=== PATIENT | female | born 1960 | race Caucasian/White ===

== ENCOUNTER 2017-11-12 10:04 | Emergency (ER) | payer OTHER ==
--- NOTE | 2017-11-12 10:28 | EDPHY ---
H & P Stated Complaint: Tripped/fell on 11/02/17;continues w/R lower rib and RUQ pain Source: Patient Exam Limitations: No limitations - Personal History Current Tetanus Diphtheria and Acellular Pertussis (TDAP): Unsure - Medical/Surgical History Hx Asthma: No Hx Chronic Respiratory Disease: No Hx Diabetes: No Hx Cardiac Disease: No Hx Renal Disease: No Hx Cirrhosis: No Hx Alcoholism: No Hx HIV/AIDS: No Hx Splenectomy or Spleen Trauma: No Other PMH: ACL RECONSTRUCTION. endometriosis - Social History Smoking Status: Former smoker Time Seen by Provider: 11/12/17 10:28 HPI/ROS: HPI: This is a 57-year-old female who presents with Chief Complaint: Tripped/fell on 11/02/17;continues w/R lower rib and RUQ pain Location: Right lower rib and right upper quadrant Quality: Injury Duration: 10 days ago Signs and Symptoms: No bleeding, no radiation, no numbness, no weakness, no tingling, no incontinence, no decreased range of motion, no swelling, + pain Timing: Acute Severity: [id number] Context: Patient is generally healthy presents with concerns of liver injury that may have occurred while at work on 11/02/2017. She was sent over from their urgent care center requesting imaging of her abdomen particularly her liver as well as her ribs. Patient reports that while she was working on 2017 she ran around the car trying to prevent a disabled patient from getting out of the car. She slipped and landed directly on the concrete hitting her right lower rib and right upper abdomen. She denies hitting her head/LOC/ dizziness/neck injury. She reported constant, moderate, nonradiating pain at the time. She did note an abrasion on her right knee that is slowly healing from the accident. She reports that over the weekend she was able to shovel snow and perform normal activities of daily living with minimal discomfort. Over the last few days, she started experiencing increased right upper quadrant and right lower rib pain, nonradiating in nature, worsened with certain positions and inspiration. Denies any shortness of breath/chest pain/ palpitations/nausea/vomiting. Patient has been eating and drinking normally. She has tried [id number] pain medications with minimal relief. No history of lung disease. Former smoker. Modifying Factors: See above Comment: ROS: see HPI Constitutional: No fever, no chills, no weight loss Eyes: No blurred vision Respiratory: No shortness of breath, no cough Cardiovascular: No chest pain Gastrointestinal: No nausea, no vomiting no diarrhea Genitourinary: No dysuria Extremities: No myalgias Neurologic: No weakness, no numbness Skin: No rashes Hematologic: No bruising, no bleeding MEDICAL/SURGICAL/SOCIAL HISTORY: Medical history: Endometriosis. Does not take any regular medications. 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 NECK: supple, no midline tenderness, flexion 45 degrees, extension 45 degrees, right and left lateral flexion 45 degrees. No meningismus. Cardiovascular: Normal S1/S2, regular rate, regular rhythm, without murmur rub or gallop. PULMONARY/CHEST: Symmetrical and right anterior lower rib reproducible tenderness. no crepitus. No ecchymosis. Clear to auscultation bilaterally. Good air movement. No accessory muscle usage. ABDOMEN: Soft, nondistended, right upper quadrant tenderness to deep palpation , no ecchymosis. PELVIC: no pain with rocking; bilateral hips flexion 125 degrees, extension 30 degrees, with no pain internal rotation and no pain external rotation. BACK: No midline tenderness, no paraspinous spasm, deep tendon reflexes 2/2, no pain with straight leg raise EXTREMITIES: 2/2 pulses, no deformities, no clubbing, no cyanosis or edema. NEUROLOGICAL: no focal neuro deficits. GCS 15. Light touch sensation intact. SKIN: Warm and dry, no erythema. no rash. Good capillary refill. ([place]) Constitutional: Initial Vital Signs Temperature (C) 36.8 C 11/12/17 10:07 Heart Rate 78 11/12/17 10:07 Respiratory Rate 16 11/12/17 10:07 Blood Pressure 128/72 H 11/12/17 10:07 O2 Sat (%) 97 11/12/17 10:07 O2 Delivery Mode Room Air Allergies/Adverse Reactions: morphine Allergy (Mild, Verified 11/12/17 10:11) itch Home Medications: Medication Instructions Recorded Lidocaine 5% [Lidoderm 5% Patch 1 ea TD DAILY #10 patch 11/12/17 (*)] Medical Decision Making ED Course/Re-evaluation: Chest x-ray and right rib series, CT abdomen and pelvis scan with contrast, labs , oral medications ordered Vital signs reviewed upon arrival and within normal limits Labs reviewed and grossly unremarkable Called by Radiology who advised that there is a lateral right 10th rib fracture nondisplaced. No pneumothorax/intra-abdominal acute abnormality. ? Sigmoid diverticulitis. Patient does not have pain in the area of possible concern of diverticulitis. Patient denies pain currently and does not wish for any medications to be provided in the emergency room. No signs of pneumothorax/hypoxia/respiratory distress/wheezing/pneumonia Advised supportive care, pain control, incentive spirometry, rice therapy This patient was seen under the supervision of my secondary supervising physician. I evaluated care for this patient independently. (Cammy Gallo) Differential Diagnosis: Differential diagnosis includes but is not limited to rib contusion, rib fracture, intra-abdominal injury, musculoskeletal strain. (Cammy Gallo) Other Provider: The patient was evaluated and managed by the Physician Real Estate Asset Manager. My co- signature indicates that I have reviewed this chart and I agree with the findings and plan of care as documented. I am the secondary supervising physician. (Tresa Scanlon) - Data Points Laboratory Results: Laboratory Results 11/12/17 10:51 11/12/17 10:51 Departure - Departure Disposition: Home, Routine, Self-Care Clinical Impression: Right rib fracture Condition: Good Instructions: Rib Fracture (ED) Additional Instructions: Images today show a 10th rib fracture that is nondisplaced. You do not have any intra-abdominal abnormality. Please use Lidoderm patch as needed for pain control. Take Tylenol 650 mg every 4 hours and/or Ibuprofen 600 mg every 8 hours with food as needed for pain. Referrals: [facility],. [Clinic] - As per Instructions Prescriptions: Lidocaine 5% [Lidoderm 5% Patch (*)] 1 ea TD DAILY #10 patch
[2017-11-12 11:01] LABS: PLATELET COUNT 207 10^3/uL (150-400)
[2017-11-12 11:10] LABS: INR 0.97 (0.83-1.16); PROTIME(PATIENT) 13.1 SEC (12.0-15.0)
[2017-11-12] MEDS ORDERED: IOPAMIDOL (ISOVUE-300) 100 ML BTL ONE (11:31)
[2017-11-12 12:45] VITALS: BP 124/69; PULSE 85; RESP 18; TEMP 98.4; O2SAT 96
== END 2017-11-12 12:41 | disposition home or self-care (01) ==
DX: S22.31XA Fracture of one rib, right side, initial encounter for closed fracture (principal); Z87.891 Personal history of nicotine dependence; W01.198A Fall on same level from slipping, tripping and stumbling with subsequent striking against other object, initial encounter
CPT/HCPCS: Q9967

== ENCOUNTER 2018-01-19 00:11 | Emergency (ER) | payer OTHER ==
[2018-01-19] MEDS ORDERED: IPRATROPIUM/ALBUTEROL 3 ML DEYVIAL IH ONE (00:54)
--- NOTE | 2018-01-19 00:54 | EDPHY ---
General Time Seen by Provider: 01/19/18 00:39 Narrative: CHIEF COMPLAINT: Cough, "rattling in my chest" HISTORY OF PRESENT ILLNESS: Patient presents with complaints of 1 week duration of multiple Respiratory complaints. It started as generalized weakness, feeling achy and joint pain. She also has subjective fever and chills. This lasted several days and she began to feel better. On Sunday, she reports that the chills returned and so did cough. The cough is not mostly dry and nonproductive. She has some body aches. No chest pain but she does have a painful cough at times. No headache, neck pain or stiffness. No nausea or vomiting. No abdominal pain. No urinary complaints. She was seen at urgent care earlier this week with reportedly negative flu test. She has been taking Mucinex and ibuprofen with no improvement. No other associated complaints or modifying factors REVIEW OF SYSTEMS: Ten systems reviewed and are negative unless otherwise noted in the HPI PCP: None SPECIALISTS: None PAST MEDICAL HISTORY: Denies any medical diagnoses PAST SURGICAL HISTORY: No recent surgical history SOCIAL HISTORY: Never smoker. Occasional alcohol use. No drug use. 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 No meningeal signs. Respiratory: Mild rhonchi. Minimal expiratory wheezing. No consolidation. No crackles. No retractions or distress Cardiovascular: Regular rate and rhythm. No murmur Gastrointestinal: Abdomen is soft and nontender Back: non-tender, no bony abnormalities Neurological: A&O, nonfocal, normal gait Skin: Warm and dry, no rash no petechiae or purpura Extremities: Nontender, no pedal edema Psychiatric: Mood and affect normal DIFFERENTIAL DIAGNOSES: Including but not limited to community-acquired pneumonia, influenza, bronchiolitis, viral bronchitis, bacterial bronchitis MDM: 12:55 a.m. Is acute cough with some flu-like symptoms. Her vital signs are oral elevated temperature but afebrile. Her respirations and heart rate control. Her oxygenation is within normal limits. She is in no acute distress and requires no supplemental oxygen. I have ordered a flu and RSV test as well as a chest x- ray to rule out pneumonia. I do not feel she warrants any further imaging or laboratory studies at this time. She is resting comfortably in no acute distress. 1:40 a.m. Patient is positive for are as the negative influenza. This does match her clinical picture. I have re-evaluated the patient. She is resting comfortably. Vital signs remained stable. She feels much better following the breathing treatment. We discussed discharge home with albuterol inhaler, anti- inflammatories, Tessalon Perles and continuation of Mucinex. We discussed contacting the on-call primary care physician for her to establish with. We also discussed ED precautions for changes symptoms, any chest pain, difficulty breathing. She is comfortable this plan and discharged home stable condition. First dose of tessalon perles given here, as well as one dose of dexamethasone by mouth. SUPERVISION: This patient was independently evaluated without direct involvement of or examination by the attending physician. - History Smoking Status: Former smoker - Objective Vital Signs: Initial Vital Signs Temperature (C) 99.0 F 01/19/18 00:15 Heart Rate 89 01/19/18 00:15 Respiratory Rate 18 01/19/18 00:15 Blood Pressure 133/82 H 01/19/18 00:15 O2 Sat (%) 93 01/19/18 00:15 O2 Delivery Mode Room Air Allergies/Adverse Reactions: morphine Allergy (Mild, Verified 11/12/17 10:11) itch Home Medications: Medication Instructions Recorded Benzonatate [Tessalon Pearles (RX)] 100 mg PO Q8 PRN #15 cap 01/19/18 Laboratory Results: 01/19/18 00:50 Nasal Influenza A PCR NEGATIVE FOR FLU A (NEGATIVE) Nasal Influenza B PCR NEGATIVE FOR FLU B (NEGATIVE) RSV (PCR) RSV DETECTED H (NEGATIVE) Medications Given: Discontinued Medications Albuterol/Ipratropium (Duoneb) 3 ml IH EDNOW ONE Stop: 01/19/18 00:55 Last Admin: 01/19/18 01:10 Dose: 3 ml Departure - Departure Disposition: Home, Routine, Self-Care Clinical Impression: RSV bronchiolitis Condition: Good Instructions: Benzonatate (By mouth), Albuterol (By breathing), Respiratory Syncytial Virus (ED), Acute Bronchitis (ED) Additional Instructions: 1. Albuterol inhaler, 1-2 puffs every 2-4 hours as needed for wheezing 2. Recommend ibuprofen 400 mg every 6-8 hours for the next 5-7 days and stop 3. Tessalon Perles as prescribed as needed for cough 4. Contact the on-call primary care physician as provided 5. ED precautions for worsening cough, shortness of breath, chest pain Referrals: NONE *PRIMARY CARE P,. [Primary Care Provider] - As per Instructions Thi Arce MD [Medical Doctor] - As per Instructions Prescriptions: Benzonatate [Tessalon Pearles (RX)] 100 mg PO Q8 PRN #15 cap PRN Reason: Cough, Mild
[2018-01-19] MEDS ORDERED: BENZONATATE 100 MG CAP PO ONE (01:42)
[2018-01-19] MEDS ORDERED: DEXAMETHASONE 4 MG TAB PO ONE (01:42)
[2018-01-19] MEDS ORDERED: ALBUTEROL INH PREPACK MDI TAKEHOME ONE (01:43)
[2018-01-19 03:06] VITALS: BP 132/77
== END 2018-01-19 03:05 | disposition home or self-care (01) ==
DX: J21.0 Acute bronchiolitis due to respiratory syncytial virus (principal); Z87.891 Personal history of nicotine dependence

== ENCOUNTER 2018-08-22 05:34 | Day surgery (SDC) | payer OTHER ==
[2018-08-22] MEDS ORDERED: LIDOCAINE 1% 2 ML INJ ID PRN (06:07)
[2018-08-22] MEDS ORDERED: LR 1,000 ML IV ONE (06:07)
[2018-08-22] MEDS ORDERED: ceFAZolin 2 GM/DEXTROSE 100 ML IV ONE (06:46)
--- NOTE | 2018-08-22 06:49 | PDHPUP ---
History & Physical Update H&P update statement: This history and physical update is based on an assessment of the patient which was completed after admission or registration (within 24 hours), but prior to the surgery/procedure. H&P update: H&P reviewed & patient examined, no change in patient's condition since H&P completed
--- NOTE | 2018-08-22 06:49 | SOAPPROG ---
SOAP Progress Note Assessment/Plan: H&P Name CAMPBELL GUERRERO (58yo, F) ID# [id number] 1960 [address] MAIN OFFICE Provider ERICK AWAD M.D. Insurance Med Primary: [employer] Insurance # : [id number] Policy/Group # : [id number] Prescription: [employer] - Member is eligible. details None recorded. Patient's Care Team Referring Provider: SEAN WILDER MD: [id number] [place] [address], , Vitals None recorded. Allergies NKDA lidocaine 5 % topical patch APPLY 1 PATCH DAILY ON FOR 12 HOURS AND OFF FOR 12 HOURS 11/12/17 filled surescripts Vaccines None recorded. Problems Reviewed Problems * Fracture of neck of fifth metacarpal - Onset: 08/01/2018 Family History Father - Heart disease - Malignant neoplastic disease - Problem Mother - Problem (not configured) Obstetric History None recorded. Past Pregnancies None recorded. Screening None recorded. 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 Birmingham with plans for CRPF - 08/01/18 -- second opinion with Dr. Medina with plans for operative intervention on 08/08/18 She presents today for further evaluation of her left small finger metacarpal injury as she has yet to undergo operative intervention. ROS ROS as noted in the HPI Physical Exam Patient is a 58-year-old female. Bilateral finger examination Inspection/palpation: Right: Soft, no tenderness to palpation. 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 Finger ROM Index MCP: 0-80 / 0-80 / 0-80 PIP: 0-105 / 0-105 / 0-105 DIP: 0-75 / 0-75 / 0-75 Long MCP: 0-90 / 0-90 / 0-90 PIP: 0-105 / 0-105 / 0-105 DIP: 0-75 / 0-75 / 0-75 Ring MCP: 0-95 / 0-95 / 0-95 PIP: 0-105 / 0-105 / 0-105 DIP: 0-75 / 0-75 / 0-75 Small MCP: 0-100 / 0-70 / 0-100 PIP: 0-105 / 0-60 / 0-105 DIP: 0-75 / 0-45 / 0-75 Finger motor and sensory Index FDS: + / + / + FDP: + / + / + EDC: + / + / + RDN: + / + / + UDN: + / + / + Long FDS: + / + / + FDP: + / + / + EDC: + / + / + RDN: + / + / + UDN: + / + / + Ring FDS: + / + / + FDP: + / + / + EDC: + / + / + RDN: + / + / + UDN: + / + / + Small FDS: + / + / + FDP: + / + / + EDC: + / + / + RDN: + / + / + UDN: + / + / + Assessment / Plan This is a very pleasant 58 year old RHD female with: - 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 Birmingham with plans for CRPF - 08/01/18 -- second opinion with Dr. 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 degrees of apex dorsal and ulnar angulation - I have discussed with the patient the risks, benefits, alternatives and complications associated with both non-operative (specifically, observation) and operative (specifically, left small finger metacarpal neck osteotomy with open reduction and internal fixation) forms of treatment - The patient fully understands the risks, benefits, alternatives, and complications associated with these forms of treatment and wishes to proceed with surgery as outlined above - She has signed the informed consent form for surgery and surgery will be scheduled for the near future 1. Fracture of neck of fifth metacarpal - Left S62.337D: Displaced fracture of neck of fifth metacarpal bone, left hand, subsequent encounter for fracture with routine healing * XR, HAND Appointment Date: 08/12/2018 Possibility of ?: N Provide films to patient: N Shielded?: Y Side: LEFT Views (X-RAY, HAND): PA, Lateral & Oblique Encounter signed-off by Erick Awad M.D. 08/22/18 06:48 Objective: Vital Signs Temp Pulse Resp BP Pulse Ox 36.5 C 63 16 128/85 H 97 08/22/18 06:44 08/22/18 06:44 08/22/18 06:44 08/22/18 06:44 08/22/18 06:44 ICD10 Worksheet Patient Problems: Problems Problem Status Onset Fracture of metacarpal of left hand, closed Acute - ICD10 Problem Qualifiers (1) Fracture of metacarpal of left hand, closed
[2018-08-22] MEDS ORDERED: BUPIVACAINE 0.5% 30 ML SDV ONE (07:00)
[2018-08-22] MEDS ORDERED: LIDOCAINE 1% 300 MG/30 ML SDV ONE (07:00)
[2018-08-22] MEDS ORDERED: ALBUTEROL 60 PUFFS/8 GM MDI IH ONE (07:01)
[2018-08-22] MEDS ORDERED: fentaNYL 100 MCG/2 ML INJ ONE ×3 (07:07→09:12)
[2018-08-22] MEDS ORDERED: PROPOFOL/EMULSION 500 MG/50 ML BOTTLE IV ONE (07:07)
[2018-08-22] MEDS ORDERED: MIDAZOLAM 2 MG/2 ML VIAL ONE (07:07)
--- NOTE | 2018-08-22 07:38 | PDANEPAE ---
ANE Past Medical History - Cardiovascular History Hx Hypertension: No Hx Arrhythmias: No Hx Chest Pain: No Hx Coronary Artery / Peripheral Vascular Disease: No Hx CHF / Valvular Disease: No Hx Palpitations: No - Pulmonary History Hx COPD: No Hx Asthma/Reactive Airway Disease: No Hx Recent Upper Respiratory Infection: No Hx Oxygen in Use at Home: No Hx Sleep Apnea: No - Neurologic History Hx Cerebrovascular Accident: No Hx Seizures: No Hx Dementia: No - Endocrine History Hx Diabetes: No - Renal History Hx Renal Disorders: No - Liver History Hx Hepatic Disorders: No - Neurological & Psychiatric Hx Hx Neurological and Psychiatric Disorders: No - Cancer History Hx Cancer: No - Congenital Disorder History Hx Congenital Disorders: No - GI History Hx Gastrointestinal Disorders: No - Surgical History Prior Surgeries: ACL reconstruction 1993 ANE Review of Systems Review of Systems: - Exercise capacity METS (RN): 4 METS ANE Patient History - Allergies Allergies/Adverse Reactions: morphine Allergy (Mild, Verified 11/12/17 10:11) itch - Home Medications Home Medications: Calcium Carb Oral Liquid 08/22/18 [Last Taken 2 Days Ago ~08/20/18] Fish Oil 1,000 mg Softgel 08/22/18 [Last Taken 1 Day Ago ~08/21/18] - NPO status NPO Since - Liquids (Date): 08/21/18 NPO Since - Liquids (Time): 23:00 NPO Since - Solids (Date): 08/21/18 NPO Since - Solids (Time): 21:00 - Smoking Hx Smoking Status: Former smoker - Family Anes Hx Family Hx Anesthesia Complications: NA ANE Labs/Vital Signs - Vital Signs Blood Pressure: 128/85 Heart Rate: 63 Respiratory Rate: 16 O2 Sat (%): 97 Height: 167.64 cm Weight: 68.039 kg ANE Physical Exam - Airway Neck exam: FROM Mallampati Score: Class 1 Mouth exam: normal dental/mouth exam - Pulmonary Pulmonary: no respiratory distress, no rales or rhonchi, clear to auscultation - Cardiovascular Cardiovascular: regular rate and rhythym, no murmur, rub, or gallop - ASA Status ASA Status: II ANE Anesthesia Plan Anesthesia Plan: GA w LMA
[2018-08-22] MEDS ORDERED: ALBUTEROL 3 ML DEYVIAL IH PRN (07:39)
[2018-08-22] MEDS ORDERED: METOCLOPRAMIDE 10 MG/2 ML VIAL IVP PRN (07:39)
[2018-08-22] MEDS ORDERED: ONDANSETRON 4 MG/2 ML VIAL IVP PRN (07:39)
[2018-08-22] MEDS ORDERED: ACETAMINOPHEN 500 MG TAB PO PRN (07:39)
[2018-08-22] MEDS ORDERED: HYDROCODONE/APAP 5/325 TAB PO PRN (07:39)
[2018-08-22] MEDS ORDERED: MEPERIDINE 25 MG/0.5 ML AMP IVP PRN (07:39)
[2018-08-22] MEDS ORDERED: DEXAMETHASONE 4 MG/ML VIAL IVP PRN (07:39)
[2018-08-22] MEDS ORDERED: NALOXONE HCL 0.4 MG/ML INJ IVP PRN (07:39)
[2018-08-22] MEDS ORDERED: oxyCODONE IR 5 MG TAB PO PRN (07:39)
[2018-08-22] MEDS ORDERED: LR 500 ML IV PRN (07:39)
[2018-08-22] MEDS ORDERED: ONDANSETRON 4 MG/2 ML VIAL ONE (08:08)
[2018-08-22] MEDS ORDERED: DEXAMETHASONE 4 MG/ML VIAL ONE (08:08)
[2018-08-22] MEDS ORDERED: KETOROLAC 30 MG/1 ML SDV ONE (08:08)
[2018-08-22] MEDS ORDERED: LIDOCAINE 2% 5 ML SDV ONE (08:08)
[2018-08-22] MEDS: fentaNYL 100 MCG/2 ML INJ IVP PRN ×2 (09:14→09:34)
--- NOTE | 2018-08-22 09:46 | POSTANESTH ---
Post Anesthetic Evaluation Cardiovascular Status: Normal, Stable, Similar to Pre-Op Cond Respiratory Status: Normal, Stable, Similar to Pre-op Cond. Level of Consciousness/Mental Status: Can Participate in Eval Pain Control: Adequate, Prn Tx Ordered Nausea/Vomiting Control: Adequate, Prn Tx Ordered Complications Possibly Related to Anesthesia: None Noted
[2018-08-22] MEDS ORDERED: HYDROCODONE/APAP 5/325 TAB ONE (09:54)
[2018-08-22 10:11] VITALS: BP 128/80
--- NOTE | 2018-08-24 21:37 | GOP ---
PATIENT: CAMPBELL GUERRERO DATE OF SERVICE: 08/22/18 PATIENT DATE OF : 1960 SURGEON: Erick Awad M.D. JUNIOR ENGINEER: Lexy Brewer PA-C Mrs. Chou assistance was medically necessary for patient positioning and the retraction of vital structures. 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) OPERATIVE PROCEDURES: CPT code 73220 Left small finger metacarpal neck osteotomy CPT code 28845 Left small finger metacarpal neck open reduction and internal fixation CPT code 58235 Left small finger extensor digitorum communis tenolysis CPT code 02749 Left hand extensor digiti minimi tenolysis CPT code 66567 - Fluoroscopy by surgeon up to 1 hour CPT code 77882 - Application of a short arm splint Modifier 47- Regional anesthesia by surgeon Modifier 22 Increased procedural services ESTIMATED BLOOD LOSS: 0.3cc COMPLICATIONS: None IMPLANTS: Synthes 2.0 mm variable angle locking plate with 2.0 mm locking and non-locking screws TOURNIQUET TIME: 65 minutes at 250 mmHg. BRIEF CLINICAL NOTE: This is a very pleasant 58 year old female with a significant history for a left small finger metacarpal neck fracture with subsequent malunion and an extension contracture. As such, I discussed the risks, benefits, alternatives, and complications associated with both non- operative (specifically, immobilization) and operative (specifically, left small finger metacarpal neck osteotomy with open reduction and internal fixation ) forms of treatment. The patient fully understood the risks, benefits, alternatives, and complications associated with both forms of treatment and wished to proceed with operative intervention as outlined above. The patient signed the informed consent form for surgery. OPERATIVE NOTE: On the day of surgery, all of the patients questions were answered. The patient was then transferred from the pre-operative area into the operating room and a formal, Time-Out procedure was performed. The patient was identified by name, medical record number, social security number, and date of . In addition, the patients left upper extremity was identified as the correct portion of the patients body for surgery with the patients left small finger metacarpal being identified as the correct portion of that extremity for surgery. The anesthesia team administered pre-operative antibiotics for prophylaxis. The brachium was then padded with webril and an 18 -inch tourniquet was applied. The extremity was then prepped and draped in the normal sterile fashion. A sterile marking pen was utilized to arleen out a dorsal longitudinal incision overlying the metacarpal. An Esmarch was then utilized to exsanguinate the upper extremity and the tourniquet was inflated to 250 mmHg. A number 15 blade was used to incise the skin. Meticulous hemostasis was obtained in the subcutaneous plane. Superficial sensory nerve branches were identified and protected. The extensor digitorum communis to the small finger and the extensor digiti minimi were both identified and found to be partially adhered to the underlying malunion site. As such, both extensor tendons were carefully released from the surround scar tissue (tenolysis) and then carefully retracted in a radial direction to expose the underlying malunion site. Dissection was then carried down to the level of the periosteum overlying the dorsal and ulnar aspect of the metacarpal. The periosteum was split longitudinally to expose the underlying malunion site. The malunion site was then carefully deconstructed to recreate the original fracture planes. This portion of the procedure required significantly more time than is typical. The mobilized fracture fragments were then reduced utilizing a small point-to- point reduction forceps and temporarily fixed with C-wires. Reduction was confirmed both with direct visualization as well as AP, lateral, and oblique C- arm images. A Synthes 2.0mm variable angle locking plate was then applied to the dorsal aspect of the metacarpal. The plate was filled with a combination of 2.0mm locking and 2.0mm non-locking screws. The C-wires were then removed. Final PA, lateral, and oblique C-arm images were obtained. All images demonstrated excellent reduction at the site of the fracture as well as appropriate implant positioning and length in all views. These images were printed and saved. The entire wound was then copiously irrigated with sterile normal saline. The periosteum was re-approximated overlying the plate utilizing 3-0 Vicryl sutures. The subcutaneous plane was re-approximated with 3-0 Vicryl sutures and the skin was re-approximated with a running 4-0 Monocryl. The skin was cleaned with sterile normal saline and dried. Dermabond was applied to the incision. A mixture of 1% lidocaine and 0.5% Marcaine was utilized to perform regional block of the operative site. A Xeroform gauze dressing was then applied followed by a short arm ulnar gutter splint maintaining the ring and small fingers in the intrinsic plus position. Once the splint was completely in place, the tourniquet was deflated. After complete deflation of the tourniquet, all fingers and the thumb demonstrated brisk capillary refill. The patient was then reversed from the anesthesia and transferred from the operating room table to the post-operative gurney and transferred from the operating room to post-anesthesia care unit in stable condition. POSTOPERATIVE PLAN: The patient will remain in the current splint and dressing for the next 2 weeks. During this time, the patient will remain strict non- weight-bearing on the operative extremity. I will see the patient back in the office in 2 weeks for splint removal, repeat left hand radiographs, and conversion into a removable ulnar gutter orthoplast to allow for the initiation of CHT and a HEP for early left small finger ROM. /[id number]/MODL MTDD
== END 2018-08-22 10:31 | disposition home or self-care (01) ==
LOC: FSGY 05:34
PROVIDERS: ATTEND Orthopaedic Surgery Hand Surgery
DX: S62.337P Displaced fracture of neck of fifth metacarpal bone, left hand, subsequent encounter for fracture with malunion (principal); M24.542 Contracture, left hand
CPT/HCPCS: C1713; J0690; J1100; J1885; J2250; J2405; J2704; J3010